=== PATIENT | male | born 1970 | race Caucasian/White ===

== ENCOUNTER → 2022-07-13 09:25 | Outpatient (BNVA) | payer MEDICAID, SELFPAY | PROVIDERS: PCP Family Medicine; Visit Provider Internal Medicine Rheumatology | DX: M32.9 Systemic lupus erythematosus, unspecified (principal); Z79.899 Other long term (current) drug therapy; R53.83 Other fatigue; M25.511 Pain in right shoulder; R76.8 Other specified abnormal immunological findings in serum; M24.411 Recurrent dislocation, right shoulder; M75.01 Adhesive capsulitis of right shoulder | CPT/HCPCS: 36415; 80076; 82306; 82565; 82607; 82746; 84439; 84443; 85025; 86160; 86162; 86235; 86255; 86376; 99204 ==